=== PATIENT | male | born 1950 | race Caucasian/White ===

== ENCOUNTER → 2019-08-06 | Outpatient (CLI) | payer MEDICARE ==
[~2019-08-06] MED LIST: METHACHOLINE KIT (J7674) INH ONE
--- NOTE | 2019-08-06 13:28 | PFTRPT ---
Visit Date: 08/06/2019 Referring Doctor: GRAEME DIANA Height: 73.00 Inches Weight: 265.00 Lbs BSA: 2.43 Diagnosis: R05 Study of excellent technical quality. Under protocol, methacholine was administered. Even after a maximal dose of 25 mg or 188.875 CDUs, no provocation dose ever achieved. IMPRESSION: Negative methacholine challenge study. MTDD
== END ==
LOC: M CARPUL 12:22
PROVIDERS: ATTEND Nurse Practitioner Family
DX: R05 Cough (principal)
CPT/HCPCS: 94070; 95070; J7674

== ENCOUNTER → 2021-07-03 | Outpatient (CLI) | payer MEDICARE ==
[~2021-07-03] MED LIST changes: +ALFU10TA3 PO; +ASPI81TA27 PO; +ATOR1TAB21 PO; +FINA5TAB2 PO; -METHACHOLINE KIT (J7674) INH ONE; +PROB250C PO
== END ==
LOC: M LABSMTC 11:16
PROVIDERS: ATTEND Anesthesiology
DX: Z01.818 Encounter for other preprocedural examination (principal); Z11.52 Encounter for screening for COVID-19

== ENCOUNTER 2021-07-07 06:43 | Day surgery (SDC) | payer MEDICARE ==
[~2021-07-07] VITALS: Ht 182.9 cm; Wt 108.9 kg
[~2021-07-07 06:43] MED LIST changes: +NS 1,000 ML IV ONE
[2021-07-07] MEDS ORDERED: propofoL 200 MG/20 ML VIAL As Ordered ONE ×2 (07:55→08:14)
[2021-07-07] MEDS ORDERED: LIDOCAINE 2% 100MG/5ML SDV (FOR ANES.) As Ordered ONE (07:55)
[2021-07-07] MEDS ORDERED: ePHEDrine SULFATE 25 MG/5 ML(5MG/ML) SYRINGE As Ordered ONE ×2 (08:12→08:13)
[2021-07-07 08:55] VITALS: BP 117/80
== END 2021-07-07 08:58 | disposition home or self-care (01) ==
LOC: M OPP 06:43
PROVIDERS: ATTEND Internal Medicine Gastroenterology
DX: Z86.010 Personal history of colon polyps (principal); Z09 Encounter for follow-up examination after completed treatment for conditions other than malignant neoplasm; K63.5 Polyp of colon; K57.30 Diverticulosis of large intestine without perforation or abscess without bleeding; K64.8 Other hemorrhoids; N40.0 Benign prostatic hyperplasia without lower urinary tract symptoms; Z79.899 Other long term (current) drug therapy; Z88.2 Allergy status to sulfonamides; Z80.41 Family history of malignant neoplasm of ovary

== ENCOUNTER 2023-07-25 06:47 | Day surgery (SDC) | payer OTHER, MEDICAID ==
[~2023-07-25] VITALS: Ht 182.9 cm; Wt 108.6 kg
[~2023-07-25 06:47] MED LIST changes: +ALBU8.5H; +ALEN70TA82 PO; +ARNU1INH; +ATROPINE SULFATE 1% OPHTH SOLN 2ML BTL OD SCH; +FLOVENT; +FLUT10.6; +LIDOCAINE 3.5 % 1ML OPHTH TOPICAL GEL OU ONE; -NS 1,000 ML IV ONE; +OFLOXACIN 0.3 % (OCUFLOX) OPTH SOL 5ML OD ONE; +PHENYLEPHRINE 10% OPHTH SOL 5ML OD PRN; +PHENYLEPHRINE 2.5% OPHTH SOL 2ML OD SCH; +TROPICAMIDE 1% OPHTH SOLN 15ML OD SCH
[2023-07-25] MEDS ORDERED: fentaNYL 100 MCG/2 ML INJECTION As Ordered ONE (07:16)
[2023-07-25] MEDS ORDERED: MIDAZOLAM INJ 2MG/2ML VIAL As Ordered ONE (07:16)
[2023-07-25] MEDS: BSS IRRIG/VANCO(10MG)/TOBRA(5MG)/EPINEPH(1:1000-0.5CC)500ML BAG-ORONLY As Ordered ONE (09:03)
[2023-07-25] MEDS: LIDOCAINE 1% SDV 5ML VIAL As Ordered ONE (09:03)
[2023-07-25] MEDS: CEFUROXIME 1MG/0.1ML INTRACAMERAL INJ As Ordered ONE (09:03)
[2023-07-25 09:13] VITALS: BP 118/64; TEMP 97.3; O2SAT 97
== END 2023-07-25 09:36 | disposition home or self-care (01) ==
LOC: M SDC 06:47
PROVIDERS: ATTEND Ophthalmology
DX: H25.11 Age-related nuclear cataract, right eye (principal); F17.220 Nicotine dependence, chewing tobacco, uncomplicated
CPT/HCPCS: 66984; J0697; J2250; J3010; V2632

== ENCOUNTER 2023-08-15 09:57 | Day surgery (SDC) | payer OTHER, MEDICAID ==
[~2023-08-15] VITALS: Ht 182.9 cm; Wt 109.3 kg
[~2023-08-15 09:57] MED LIST changes: +ALBU8.5H PO; +ARNU1INH PO; -ATROPINE SULFATE 1% OPHTH SOLN 2ML BTL OD SCH; -LIDOCAINE 3.5 % 1ML OPHTH TOPICAL GEL OU ONE; -OFLOXACIN 0.3 % (OCUFLOX) OPTH SOL 5ML OD ONE; -PHENYLEPHRINE 10% OPHTH SOL 5ML OD PRN; +PHENYLEPHRINE 10% OPHTH SOL 5ML OS PRN; -PHENYLEPHRINE 2.5% OPHTH SOL 2ML OD SCH; -TROPICAMIDE 1% OPHTH SOLN 15ML OD SCH; +prevagen PO
[2023-08-15] MEDS: LIDOCAINE 3.5 % 1ML OPHTH TOPICAL GEL OU ONE (10:39)
[2023-08-15] MEDS: OFLOXACIN 0.3 % (OCUFLOX) OPTH SOL 5ML OS ONE (10:39)
[2023-08-15] MEDS: ATROPINE SULFATE 1% OPHTH SOLN 2ML BTL OS SCH (10:40)
[2023-08-15] MEDS: PHENYLEPHRINE 2.5% OPHTH SOL 2ML OS SCH (10:40)
[2023-08-15] MEDS: TROPICAMIDE 1% OPHTH SOLN 15ML OS SCH (10:40)
[2023-08-15] MEDS ORDERED: fentaNYL 100 MCG/2 ML INJECTION As Ordered ONE (11:02)
[2023-08-15] MEDS ORDERED: MIDAZOLAM INJ 2MG/2ML VIAL As Ordered ONE (11:02)
[2023-08-15] MEDS: BSS IRRIG/VANCO(10MG)/TOBRA(5MG)/EPINEPH(1:1000-0.5CC)500ML BAG-ORONLY As Ordered ONE (11:33)
[2023-08-15] MEDS: LIDOCAINE 1% SDV 5ML VIAL As Ordered ONE (11:33)
[2023-08-15] MEDS: CEFUROXIME 1MG/0.1ML INTRACAMERAL INJ As Ordered ONE (11:34)
[2023-08-15 11:45] VITALS: BP 119/71; TEMP 97.2; O2SAT 94
== END 2023-08-15 12:00 | disposition home or self-care (01) ==
LOC: M SDC 09:57
PROVIDERS: ATTEND Ophthalmology
DX: H25.12 Age-related nuclear cataract, left eye (principal); Z79.899 Other long term (current) drug therapy; Z98.41 Cataract extraction status, right eye; F17.220 Nicotine dependence, chewing tobacco, uncomplicated
CPT/HCPCS: 66984; J0697; J2250; J3010; V2632